=== PATIENT | male | born 1995 | race Caucasian/White ===

== ENCOUNTER 2017-05-20 08:47 | Emergency (ER) | payer BC ==
[2017-05-20 09:11] VITALS: BP 120/67
--- NOTE | 2017-05-20 09:25 | UC ---
Eye Complaint HPI - HPI Summary HPI Summary: Pt c/o URI like symptoms and left eye swelling and white discharge. Pt is home on leave from [employer] training. Pt states that "pink eye is going around my company" - History of Current Complaint Chief Complaint: UCEye Stated Complaint: EYE COMPLAINT Time Seen by Provider: 05/20/17 09:18 Hx Obtained From: Patient Onset/Duration: Sudden Onset Severity Initially: Mild Severity Currently: Mild Aggravating Factor(s): Light Associated Signs And Symptoms: Positive: Drainage (Purulent) - Allergies/Home Medications Allergies/Adverse Reactions: Allergies Allergy/AdvReac Type Severity Reaction Status Date / Time No Known Allergies Allergy Verified 05/20/17 09:11 PMH/Surg Hx/FS Hx/Imm Hx Previously Healthy: Yes - Surgical History Surgical History: None - Family History Known Family History: Positive: Cardiac Disease - Social History Occupation: Employed Full-time Lives: Dormitory/Roommates Alcohol Use: None Substance Use Type: None Smoking Status (MU): Never Smoked Tobacco - Immunization History Vaccination Up to Date: Yes Review of Systems Constitutional: Negative Skin: Negative Eyes: Drainage, Eye Redness ENT: Other - nasal congestion Respiratory: Cough Cardiovascular: Negative Gastrointestinal: Negative Genitourinary: Negative Motor: Negative Neurovascular: Negative Musculoskeletal: Negative Neurological: Negative Psychological: Negative Is Patient Immunocompromised?: No All Other Systems Reviewed And Are Negative: Yes Physical Exam Triage Information Reviewed: Yes Appearance: Well-Appearing Vital Signs: Initial Vital Signs Temp 98.2 F 05/20/17 09:07 Pulse 67 05/20/17 09:07 Resp 16 05/20/17 09:07 BP 120/67 05/20/17 09:07 Pulse Ox 100 05/20/17 09:07 Eye Exam: Other Eyes: Positive: Conjunctiva Inflamed, Other: - upper eyelid swelling right side ENT Exam: Other ENT: Positive: Nasal congestion Dental Exam: Normal Neck exam: Normal Respiratory Exam: Normal Cardiovascular Exam: Normal Musculoskeletal Exam: Normal Neurological Exam: Normal Psychological Exam: Normal Skin Exam: Normal Eye Complaint Course/Dx - Differential Dx/Diagnosis Differential Diagnosis/HQI/PQRI: Conjunctivitis, Other - URI Provider Diagnoses: conjunctivitis left eye. URI Discharge - Discharge Plan Condition: Stable Disposition: HOME Prescriptions: Polymyx/Trimethoprim OPTH* [Polytrim OPHTH*] 2 drop LEFT EYE Q8H #1 btl Patient Education Materials: Viral Syndrome (ED), Conjunctivitis (ED) Referrals: Ezekiel Adams MD [Primary Care Provider] -
== END 2017-05-20 09:33 | disposition home or self-care (01) ==
LOC: UCCORT 08:47
DX: H10.9 Unspecified conjunctivitis (principal); J06.9 Acute upper respiratory infection, unspecified
CPT/HCPCS: 99202; G0463